=== PATIENT | male | born 1985 ===

== ENCOUNTER 2018-07-02 01:12 | Emergency (ER) | payer OTHER ==
[2018-07-02 01:23] VITALS: O2SAT 99
[2018-07-02] MEDS ORDERED: Sodium Chloride 0.9% 1,000 ML IV ONE (01:48)
[2018-07-02 01:56] LABS: BASO # 0.1 K/uL (0.0-0.2); BASO % 1.1 % (0.0-2.0); EOS # 0.2 K/uL (0.0-0.7); EOS % 2.1 % (0.0-4.0); HEMOGLOBIN 15.5 g/dL (12.0-18.0); LYMPH # 3.9 K/uL (1.0-4.3); LYMPH % 38.1 % (20.0-40.0); MEAN CELL VOLUME 85.5 fL (80.0-94.0); MEAN CORPUSCULAR HEMOGLOBIN 29.2 pg (27.0-31.0); MEAN CORPUSCULAR HGB CONC 34.2 g/dL (33.0-37.0); MEAN PLATELET VOLUME 9.3 fL (7.2-11.7); MONO % 10.3 % (0.0-10.0); NEUT # 4.9 K/uL (1.8-7.0); NEUT % 48.4 % (50.0-75.0); RBC 5.3 Mil/uL (4.40-5.90); RED CELL DISTRIBUTION WIDTH 13.4 % (11.5-14.5); WHITE BLOOD COUNT 10.2 K/uL (4.8-10.8)
[2018-07-02 01:59] LABS: URINE BILIRUBIN NEGATIVE (NEGATIVE); URINE BLOOD 1+ (NEGATIVE); URINE CLARITY Clear (Clear); URINE COLOR Yellow (YELLOW); URINE GLUCOSE (UA) NORMAL (Normal); URINE LEUKOCYTE ESTERASE NEG Leu/uL (Negative); URINE PROTEIN NEGATIVE (NEGATIVE)
[2018-07-02 02:06] LABS: ALB/GLOB RATIO 1.5 (1.0-2.1); ALBUMIN 4.6 g/dL (3.5-5.0); ALT/SGPT 54 U/L (21-72); AST/SGOT 27 U/L (17-59); BLOOD UREA NITROGEN 17 mg/dL (9-20); CALCIUM 9.2 mg/dl (8.6-10.4); GFR NON-AFRICAN AMERICAN > 60; LIPASE 58 U/L (23-300)
--- NOTE | 2018-07-02 02:20 | C.PDOC ---
History Of Present Illness 33 year old male presents to the ED c/o epigastric and LUQ abdomina pain associated with nausea for the past 3-4 hours. Patient states he tried to take antacid pill with no relief. Patient denies fever, chills, vomit, diarrhea, rash, dysuria, hematuria, back pain, known hx of GERD gastritis, ulcer. Time Seen by Provider: 07/02/18 01:29 Chief Complaint (Nursing): Abdominal Pain History Per: Patient History/Exam Limitations: no limitations Onset/Duration Of Symptoms: Hrs (3-4) Current Symptoms Are (Timing): Still Present Location Of Pain/Discomfort: Epigastric, LUQ Radiation Of Pain To:: None Quality Of Discomfort: "Pain" Associated Symptoms: Nausea. denies: Vomiting, Diarrhea, Urinary Symptoms Recent travel outside of the [place]: No Additional History Per: Patient Past Medical History Reviewed: Historical Data, Nursing Documentation, Vital Signs Vital Signs: Last Vital Signs Temp 98.3 F 07/02/18 01:22 Pulse 68 07/02/18 01:22 Resp 18 07/02/18 01:22 BP 134/84 07/02/18 01:22 Pulse Ox 99 07/02/18 01:22 - Medical History PMH: No Chronic Diseases Surgical History: No Surg Hx Family History: States: Unknown Family Hx - Social History Hx Alcohol Use: No Hx Substance Use: No Review Of Systems Constitutional: Negative for: Fever, Chills Cardiovascular: Negative for: Chest Pain Respiratory: Negative for: Shortness of Breath Gastrointestinal: Positive for: Nausea, Abdominal Pain. Negative for: Vomiting, Diarrhea Genitourinary: Negative for: Dysuria, Hematuria Musculoskeletal: Negative for: Back Pain Neurological: Negative for: Weakness, Numbness Physical Exam - Physical Exam Appears: Non-toxic, Other (Mild uncomfortable ) Skin: Normal Color, Warm, Dry Head: Atraumatic, Normacephalic Eye(s): bilateral: Normal Inspection Oral Mucosa: Moist Neck: Normal ROM, Supple Chest: Symmetrical Cardiovascular: Rhythm Regular Respiratory: Normal Breath Sounds, No Rales, No Rhonchi, No Wheezing Gastrointestinal/Abdominal: Soft, Tenderness (mild epigastric, LUQ), No Guarding, No Rebound, Other (Negative Rey's and McBurney's) Back: No CVA Tenderness Extremity: Normal ROM, No Tenderness, No Swelling Neurological/Psych: Oriented x3, Normal Speech, Normal Cognition Gait: Steady ED Course And Treatment - Laboratory Results Result Diagrams: 07/02/18 01:52 07/02/18 01:52 O2 Sat by Pulse Oximetry: 99 (ON RA) Pulse Ox Interpretation: Normal Progress Note: Plan: - Labs. - Pepcid 20 mg IVP. - IV fluids. - UA Disposition Counseled Patient/Family Regarding: Studies Performed, Diagnosis, Need For Followup, Rx Given - Disposition Referrals: Aydin Saldana MD [Staff Provider] - [facility] [Outside] Disposition: HOME/ ROUTINE Disposition Time: 03:00 Condition: STABLE Additional Instructions: FOLLOW UP WITH MEDICAL CLINIC IN 1-2 DAYS, AND WITH JOB CHECKER WITHIN 1 WEEK USE PROTONIX DAILY AND PEPCID NEEDED AVOID SPICY OR ACIDIC FOODS RETURN TO EMERGENCY ROOM IF YOUR SYMPTOMS WORSEN SEGUIR CON LA CLNICA MDICA EN 1-2 LOPEZ Y CON EL GASTROENTERLOGO DENTRO DE 1 SEMANA UTILICE PROTONIX DAILY AND PEPCID SEGN SEA NECESARIO Gail los alimentos especiados o cidos. VUELVA A LA JEREMIAH DE EMERGENCIA SI MARCY SNTOMAS SE BARNETT PROBLEMAS Prescriptions: Famotidine [Pepcid] 20 mg PO BID PRN #15 tab PRN Reason: abdominal Pantoprazole [Protonix EC Tab] 20 mg PO DAILY #30 ect Instructions: Acute Abdomen (Belly Pain), Adult (DC) Forms: [employer] (Sami) Print Language: LITHUANIAN - Clinical Impression Clinical Impression: Epigastric abdominal pain - Scribe Statement The provider has reviewed the documentation as recorded by the Scribe Rivas Carrera All medical record entries made by the Scribe were at my direction and personally dictated by me. I have reviewed the chart and agree that the record accurately reflects my personal performance of the history, physical exam, medical decision making, and the department course for this patient. I have also personally directed, reviewed, and agree with the discharge instructions and disposition.
[2018-07-02 03:25] VITALS: BP 129/78; PULSE 74; RESP 20; TEMP 98.5
== END 2018-07-02 03:25 | disposition home or self-care (01) ==
LOC: C.ER 01:12
DX: R10.13 Epigastric pain (principal)
CPT/HCPCS: 80053; 81001; 83690; 85025; 96361; 96374; 96375; 99284; J1885; J7030

== ENCOUNTER 2018-10-03 09:34 | Emergency (ER) | payer OTHER ==
[2018-10-03] MEDS ORDERED: Sodium Chloride 0.9% 1,000 ML IV ONE ×2 (10:05→13:07)
--- NOTE | 2018-10-03 10:05 | C.PDOC ---
History Of Present Illness 33 y/o male comes in to ED complaining of abdominal pain after a colonoscopy yesterday. Patient states he was able to eat with no difficulty and had no complaints during the procedure. Patient denies any fever or blood in stool. Time Seen by Provider: 10/03/18 09:52 Chief Complaint (Nursing): Abdominal Pain History Per: Patient History/Exam Limitations: no limitations Onset/Duration Of Symptoms: Days Current Symptoms Are (Timing): Still Present Past Medical History Reviewed: Historical Data, Nursing Documentation, Vital Signs Vital Signs: Last Vital Signs Temp 97.5 F L 10/03/18 09:51 Pulse 64 10/03/18 09:51 Resp 20 10/03/18 09:51 BP 134/78 10/03/18 09:51 Pulse Ox 99 10/03/18 09:51 Family History: States: No Known Family Hx - Social History Hx Alcohol Use: No Hx Substance Use: No Review Of Systems Except As Marked, All Systems Reviewed And Found Negative. Constitutional: Negative for: Fever, Chills Gastrointestinal: Positive for: Abdominal Pain. Negative for: Vomiting, Diarrhea, Hematochezia Genitourinary: Negative for: Dysuria, Hematuria Musculoskeletal: Negative for: Back Pain Physical Exam - Physical Exam Appears: Non-toxic, Other (In Mild Distress) Skin: Warm, Dry Head: Atraumatic, Normacephalic Eye(s): bilateral: Normal Inspection Oral Mucosa: Moist Neck: Supple Cardiovascular: Rhythm Regular, No Murmur Respiratory: Normal Breath Sounds, No Rales, No Rhonchi, No Wheezing Gastrointestinal/Abdominal: Soft, Tenderness (epigastric tenderness), No Guard ing, No Rebound Back: No CVA Tenderness Extremity: Bilateral: Atraumatic, Normal ROM Neurological/Psych: Oriented x3, Normal Speech ED Course And Treatment - Laboratory Results Result Diagrams: 10/03/18 11:23 10/03/18 10:45 O2 Sat by Pulse Oximetry: 99 (RA) Pulse Ox Interpretation: Normal - CT Scan/US Abd/Pel CT Other Rad Studies (CT/US): Read By Radiologist, Radiology Report Reviewed CT/US Interpretation: FINDINGS: LOWER THORAX: Small hiatal hernia encountered. Visualized lung bases otherwise appear unremarkable. LIVER: Diminished attenuation throughout the liver represents hepatic steatosis. No mass or intrahepatic biliary dilatation. GALLBLADDER AND BILE DUCTS: Unremarkable. PANCREAS: Unremarkable. No gross lesion or ductal dilatation. SPLEEN: Unremarkable. ADRENALS: Unremarkable. No mass. KIDNEYS AND URETERS: Unremarkable. No hydronephrosis. No solid mass. VASCULATURE: Unremarkable. No aortic aneurysm. No aortic atherosclerotic calcification or mural plaque present. BOWEL: Stomach is distended with retained fluid. Small bowel is largely collapsed although there is a mildly dilated fecalized segment at the mid and terminal ileum which is nonspecific appearing. Submucous lucency refl ects fat within the slightly thick-walled transverse colon and possibly distending close could reflect chronic inflammatory process such as inflammatory bowel disease. Pattern is not typical for acute segmental colitis.colon is largely collapsed with exception of a limited matter retained fecal material at the ascending through proximal transverse segments. APPENDIX: Normal appendix. PERITONEUM: Shotty pericecal and central mesenteric lymph nodes may reflect mesenteric adenitis. No free fluid or air or other sign of bowel perforation. LYMPH NODES: Unremarkable. No enlarged lymph nodes. BLADDER: Unremarkable. REPRODUCTIVE: Unremarkable. BONES: No acute fracture. OTHER FINDINGS: None. IMPRESSION: 1. Mildly distended segment of mid and distal ileum with fecalization is a nonspecific pattern as small bowel proximal to this segment is collapsed in general. This is not definitive for an obstruction though clinical correlation is recommended. 2. Potential inflammatory bowel disease affecting mid and distal large-bowel. 3. No CT sign of bowel perforation at this time. The stomach is distended with retained fluid. Medical Decision Making Medical Decision Making: Plan: --Abd/Pel CT --Labs --UA --Morphine 2 mg IVP --Protonix 40 mg IVP --Zofran 4 mg IVP --IV fluids 1L Spoke to patient's GI doctor, Dr. Saldana, who states that the colonoscopy procedure went as planned with no complications. Disposition - Disposition Referrals: Aydin Saldana MD [Staff Provider] - Disposition: HOME/ ROUTINE Disposition Time: 14:00 Condition: IMPROVED Additional Instructions: ANETTE HOLLEY, thank you for letting us take care of you today. The emergency medical care you received today was directed at your acute symptoms. If you were prescribed any medication, please fill it and take as directed. It may take several days for your symptoms to resolve. Return to the Emergency Department if your symptoms worsen, do not improve, or if you have any other problems. Please contact your doctor or call one of the physicians/clinics you have been referred to that are listed on the Patient Visit Information form that is included in your discharge packet. Bring any paperwork you were given at discharge with you along with any medications you are taking to your follow up visit. Our treatment cannot replace ongoing medical care by a primary care provider outside of the emergency department. Thank you for allowing the [facility] team to be part of your care today. Follow up with Dr. Saldana, your GI doctor, in 1-2 days for re-evaluation and further management. Prescriptions: Famotidine [Pepcid] 20 mg PO BID #20 tab Ondansetron ODT [Zofran ODT] 4 mg PO Q8 PRN #15 odt PRN Reason: Nausea/Vomiting Instructions: Gastritis (DC) Forms: [email or web address] (Divehi), Work Excuse - Clinical Impression Clinical Impression: Gastritis - Scribe Statement The provider has reviewed the documentation as recorded by the Scribe Mary Zhou Provider Attestation: All medical record entries made by the Scribe were at my direction and personally dictated by me. I have reviewed the chart and agree that the record accurately reflects my personal performance of the history, physical exam, medical decision making, and the department course for this patient. I have also personally directed, reviewed, and agree with the discharge instructions and disposition.
[2018-10-03] MEDS ORDERED: Sodium Chloride 0.9% 1,000 ML ONE (10:36)
[2018-10-03 11:05] LABS: ALB/GLOB RATIO 1.4 (1.0-2.1); ALBUMIN 4.7 g/dL (3.5-5.0); ALT/SGPT 48 U/L (21-72); AST/SGOT 32 U/L (17-59); BLOOD UREA NITROGEN 13 mg/dL (9-20); CALCIUM 9.8 mg/dl (8.6-10.4); GFR NON-AFRICAN AMERICAN > 60; LIPASE 38 U/L (23-300)
[2018-10-03] MEDS ORDERED: Iodixanol 320 MG/ML 100 ML BOTTLE IV ONE (11:21)
[2018-10-03 11:36] LABS: BASO % 0.2 % (0.0-2.0); HEMOGLOBIN 14.5 g/dL (12.0-18.0); LYMPH # 0.8 K/uL (1.0-4.3); LYMPH % 7.4 % (20.0-40.0); MEAN CELL VOLUME 86.3 fL (80.0-94.0); MEAN CORPUSCULAR HEMOGLOBIN 29.2 pg (27.0-31.0); MEAN CORPUSCULAR HGB CONC 33.9 g/dL (33.0-37.0); MEAN PLATELET VOLUME 8.8 fL (7.2-11.7); MONO # 0.3 K/uL (0.0-0.8); MONO % 2.5 % (0.0-10.0); NEUT # 10.2 K/uL (1.8-7.0); NEUT % 89.9 % (50.0-75.0); PLATELET COUNT 298 K/uL (130-400); RBC 4.95 Mil/uL (4.40-5.90); RED CELL DISTRIBUTION WIDTH 12.9 % (11.5-14.5); WHITE BLOOD COUNT 11.4 K/uL (4.8-10.8)
[2018-10-03 12:11] LABS: URINE BILIRUBIN NEGATIVE (NEGATIVE); URINE BLOOD 1+ (NEGATIVE); URINE CLARITY Clear (Clear); URINE COLOR Yellow (YELLOW); URINE GLUCOSE (UA) NORMAL (Normal); URINE LEUKOCYTE ESTERASE NEG Leu/uL (Negative); URINE PROTEIN 1+ mg/dL (NEGATIVE); URINE UROBILINOGEN NORMAL mg/dL (0.2-1.0)
--- NOTE | 2018-10-03 12:11 | CT ---
Date of service: 10/03/2018 PROCEDURE: CT Abdomen and Pelvis with contrast HISTORY: diffuse abdominal pain - had colonscopsy yesterday COMPARISON: None available. TECHNIQUE: Following the intravenous administration of iodinated contrast material, a CT examination of the abdomen and pelvis was performed from the domes of the diaphragms to the symphysis pubis with reformatted datasets provided in axial, sagittal and coronal planes. Oral contrast was not administered as per referring physician request. Contrast dose: Omnipaque 320, 100 cc Radiation dose: Total exam DLP = 785.73 mGy-cm. This CT exam was performed using one or more of the following dose reduction techniques: Automated exposure control, adjustment of the mA and/or kV according to patient size, and/or use of iterative reconstruction technique. FINDINGS: LOWER THORAX: Small hiatal hernia encountered. Visualized lung bases otherwise appear unremarkable. LIVER: Diminished attenuation throughout the liver represents hepatic steatosis. No mass or intrahepatic biliary dilatation. GALLBLADDER AND BILE DUCTS: Unremarkable. PANCREAS: Unremarkable. No gross lesion or ductal dilatation. SPLEEN: Unremarkable. ADRENALS: Unremarkable. No mass. KIDNEYS AND URETERS: Unremarkable. No hydronephrosis. No solid mass. VASCULATURE: Unremarkable. No aortic aneurysm. No aortic atherosclerotic calcification or mural plaque present. BOWEL: Stomach is distended with retained fluid. Small bowel is largely collapsed although there is a mildly dilated fecalized segment at the mid and terminal ileum which is nonspecific appearing. Submucous lucency reflects fat within the slightly thick-walled transverse colon and possibly distending close could reflect chronic inflammatory process such as inflammatory bowel disease. Pattern is not typical for acute segmental colitis.colon is largely collapsed with exception of a limited matter retained fecal material at the ascending through proximal transverse segments. APPENDIX: Normal appendix. PERITONEUM: Shotty pericecal and central mesenteric lymph nodes may reflect mesenteric adenitis. No free fluid or air or other sign of bowel perforation. LYMPH NODES: Unremarkable. No enlarged lymph nodes. BLADDER: Unremarkable. REPRODUCTIVE: Unremarkable. BONES: No acute fracture. OTHER FINDINGS: None. IMPRESSION: 1. Mildly distended segment of mid and distal ileum with fecalization is a nonspecific pattern as small bowel proximal to this segment is collapsed in general. This is not definitive for an obstruction though clinical correlation is recommended. 2. Potential inflammatory bowel disease affecting mid and distal large-bowel 3. No CT sign of bowel perforation at this time. The stomach is distended with retained fluid.
[2018-10-03 12:12] LABS: LYMPHOCYTE 9 % (20-40); MONOCYTE 2 % (0-10); NEUTROPHIL 89 % (50-75); PLATELET ESTIMATE NORMAL (NORMAL); TOTAL CELLS COUNTED 100
[2018-10-03] MEDS ORDERED: Morphine 4 MG/ML VIAL IV STA (13:07)
[2018-10-03] MEDS ORDERED: Morphine 4 MG/ML VIAL ONE (13:15)
--- NOTE | 2018-10-03 14:04 | CP.PCM.CON ---
History of Present Illness - History of Present Illness History of Present Illness: General Surgery consult note for Dr. Lam Consulted for abdominal pain after colonoscopy Patient is a 33 yr old male with PMH gastritis, H. pylori and persistent diarrhea presenting to [facility] s/p colonoscopy yesterday with complaints of intermittent pressure like abdominal pain. He was having the colonoscopy d/t his persistent diarrhea of unknown cause. Patient states he has had pain like this before in the past and was told he had "gas". Patient endorses epigastric focus of the pain with concomitant acid refulx symptoms similar to those he has had in the past. He otherwise denies GARCIA, Chest pain, SOB, palpitations, n/v, f/c, family history of colon cancer, stool changes and extremity pain/weakness. PMH: gastritis, H. Pylori PSH: Ear tubes Family Hx: grandmother with esophageal cancer Meds: none Social: denies ETOH, smoking and illicit drugs GI: [place] PMD: none Review of Systems - Review of Systems All systems: reviewed and no additional remarkable complaints except (as per HPI) Past Patient History - Past Social History Smoking Status: Never Smoked - PSYCHIATRIC Hx Substance Use: No - ANESTHESIA Hx Anesthesia: No Meds Home Medications: Home Medication List Medication Instructions Recorded Confirmed Type Famotidine [Pepcid] 20 mg PO BID #20 tab 10/03/18 Rx Ondansetron ODT [Zofran ODT] 4 mg PO Q8 PRN #15 odt 10/03/18 Rx Allergies/Adverse Reactions: Allergies Allergy/AdvReac Type Severity Reaction Status Date / Time No Known Allergies Allergy Verified 07/02/18 01:40 - Medications Medications: Current Medications Sodium Chloride (Sodium Chloride 0.9%) 1,000 mls @ 1,000 mls/hr IV .Q1H ONE Stop: 10/03/18 14:06 Last Admin: 10/03/18 13:10 Dose: 1,000 mls/hr Physical Exam - Constitutional Appears: Well, Non-toxic, No Acute Distress - Head Exam Head Exam: ATRAUMATIC, NORMOCEPHALIC - Eye Exam Eye Exam: EOMI - ENT Exam ENT Exam: Mucous Membranes Moist - Respiratory Exam Respiratory Exam: NORMAL BREATHING PATTERN - Cardiovascular Exam Cardiovascular Exam: REGULAR RHYTHM - GI/Abdominal Exam GI & Abdominal Exam: Soft, Tenderness (epigastric mild). absent: Distended, Guarding - Extremities Exam Extremities exam: Negative for: calf tenderness, pedal edema - Neurological Exam Neurological exam: Alert, Oriented x3 - Psychiatric Exam Psychiatric exam: Normal Affect, Normal Mood - Skin Skin Exam: Dry, Intact, Normal Color, Warm Results - Vital Signs Recent Vital Signs: Last Vital Signs Temp 97.5 F L 10/03/18 09:51 Pulse 64 10/03/18 09:51 Resp 20 10/03/18 09:51 BP 129/75 10/03/18 13:10 Pulse Ox 99 10/03/18 10:05 - Labs Result Diagrams: 10/03/18 11:23 10/03/18 10:45 Labs: Laboratory Results - last 24 hr 10/03/18 10/03/18 10/03/18 10:45 11:23 11:23 WBC 11.4 H RBC 4.95 Hgb 14.5 Hct 42.7 MCV 86.3 MCH 29.2 MCHC 33.9 RDW 12.9 Plt Count 298 MPV 8.8 Neut % (Auto) 89.9 H Lymph % (Auto) 7.4 L Clay % (Auto) 2.5 Eos % (Auto) 0.0 Baso % (Auto) 0.2 Neut # (Auto) 10.2 H Lymph # (Auto) 0.8 L Clay # (Auto) 0.3 Eos # (Auto) 0.0 Baso # (Auto) 0.0 Neutrophils % (Manual) 89 H Lymphocytes % (Manual) 9 L Monocytes % (Manual) 2 Platelet Estimate Normal Sodium 141 Potassium 4.2 Chloride 107 Carbon Dioxide 23 Anion Gap 16 BUN 13 Creatinine 0.8 Est GFR ( Amer) > 60 Est GFR (Non-Af Amer) > 60 Random Glucose 139 H D Calcium 9.8 Total Bilirubin 0.3 AST 32 ALT 48 Alkaline Phosphatase 125 Total Protein 8.1 Albumin 4.7 Globulin 3.4 Albumin/Globulin Ratio 1.4 Lipase 38 Urine Color Yellow Urine Clarity Clear Urine pH 6.0 Ur Specific [place] 1.024 Urine Protein 1+ H Urine Glucose (UA) Normal Urine Ketones Negative Urine Blood 1+ H Urine Nitrate Negative Urine Bilirubin Negative Urine Urobilinogen Normal Ur Leukocyte Esterase Neg Urine WBC (Auto) 1 Urine RBC (Auto) 4 H Assessment & Plan - Assessment and Plan (Free Text) Assessment: 33 yr old male with pmh significant for H Pylori and gastritis with epigastric abdominal pain s/p colonoscopy yesterday Plan: - clinical, lab and imaging results consistent with gastritis vs H pylori reac tivation - recommend GI follow up and possible EGD for further assessment - no surgical intervention at this time - discussed with Dr. Carole Artis, PGY 1 - Date & Time Date: 10/03/18 Time: 14:25
[2018-10-03 14:31] VITALS: BP 126/72; PULSE 66; RESP 20
[2018-10-03 14:43] VITALS: TEMP 98.9
[2018-10-03 15:56] VITALS: O2SAT 99
== END 2018-10-03 14:48 | disposition home or self-care (01) ==
LOC: C.ER 09:34
DX: K29.70 Gastritis, unspecified, without bleeding (principal)
CPT/HCPCS: 74177; 80053; 81001; 83690; 85025; 87040; 87086; 96361; 96374; 96375; 96376; 99285; C9113; J2270; J2405; J7030; Q9967